=== PATIENT | male | born 1975 | race Hispanic/Latino ===

== ENCOUNTER 2019-07-15 19:32 | Emergency (ER) | payer SELFPAY ==
[~2019-07-15] VITALS: Ht 160 cm; Wt 63.6 kg
[2019-07-15 20:35] LABS: HEMATOCRIT 40.2 % (39.0-50.0); HEMOGLOBIN 13.8 g/dl (14.0-18.0); IMMATURE GRANULOCYTES 0.3 % (0.0-5.0); MEAN CELL VOLUME 87.8 fL CALC (80.0-100.0); MEAN CORPUSCULAR HGB 30.1 pG CALC (26.0-32.0); MEAN CORPUSCULAR HGB CONC 34.3 g/L CALC (32.0-36.0); NEUT# 5.21 thou/uL (1.82-7.42); RED BLOOD COUNT 4.58 mill/uL (4.70-6.10); RED CELL DISTRI WIDTH 12.5 % (11.5-15.5)
[2019-07-15 20:50] LABS: ALBUMIN 4.3 g/dL (3.2-5.0); ALKALINE PHOSPHATASE 93 u/l (38-126); AMYLASE 71 u/l (30-110); ANION GAP 15 (6-22 (CALC)); BILIRUBIN, TOTAL 0.4 mg/dL (0.0-1.4); BUN 18 mg/dL (9-20); BUN/CREATININE RATIO 19 (12-20 (CALC)); CARBON DIOXIDE 22 mmol/l (22-30); CHLORIDE 107 mmol/l (95-108); ETHYL ALCOHOL 0 mg/dl (0-30); GFR > 60 ML/MIN (>=60 (CALC)); GFR FOR AFR.AMER. > 60 ML/MIN (>=60 (CALC)); LIPASE 59 u/l (23-300); POTASSIUM 3.8 mmol/l (3.5-5.1); SGOT/AST 30 u/l (17-59); SODIUM 139 mmol/l (137-146); TOTAL PROTEIN 7.5 g/dL (6.3-8.2)
[2019-07-15] MEDS ORDERED: PROTONIX40 M2 PO (22:09)
[2019-07-15] MEDS ORDERED: ZOFRAN4 MG/TAB PO (22:10)
[2019-07-15 23:07] VITALS: BP 129/83
== END 2019-07-15 23:07 | disposition home or self-care (01) | DRG 392 ==
LOC: ED 19:32
DX: R10.13 Epigastric pain (principal)
CPT/HCPCS: Q9967; S0164

== ENCOUNTER 2019-12-20 | Emergency (ER) | payer SELFPAY ==
[~2019-12-20] MED LIST: PROTONIX40 M2 PO; ZOFRAN4 MG/TAB PO
[2019-12-20] MEDS ORDERED: FLEXERIL PO (14:17)
[2019-12-20] MEDS ORDERED: IBUPROFEN600 MG PO (14:17)
== END 2019-12-20 14:21 | disposition home or self-care (01) | DRG 563 ==
DX: S93.601A Unspecified sprain of right foot, initial encounter (principal); M54.31 Sciatica, right side; I10 Essential (primary) hypertension; X58.XXXA Exposure to other specified factors, initial encounter; Y92.89 Other specified places as the place of occurrence of the external cause; Y99.0 Civilian activity done for income or pay